=== PATIENT | female | born 1960 | race Caucasian/White ===

== ENCOUNTER 2025-02-17 14:39 | Emergency (ER) | payer MEDICARE, OTHER ==
[2025-02-17] MEDS: Ketorolac 30 MG/ML SDV IM ONE (15:17)
[2025-02-17] MEDS: traMADol 50 MG Tab PO STA (15:17)
== END 2025-02-17 17:14 | disposition home or self-care (01) ==
LOC: FB.ED 14:39
DX: M43.17 Spondylolisthesis, lumbosacral region (principal); M54.42 Lumbago with sciatica, left side; Z79.899 Other long term (current) drug therapy
CPT/HCPCS: 72131; 96372; 99283; A9270-GY; J1885